=== PATIENT | male | born 1980 | race American Indian/Alaskan Native ===

== ENCOUNTER 2017-12-23 01:03 | Emergency (ER) | payer OTHER ==
[2017-12-23 01:10] VITALS: BP 132/85
[2017-12-23] MEDS ORDERED: BOOSTRIX IM ONE (03:33)
--- NOTE | 2017-12-23 03:37 | Emergency Department Report ---
ED Laceration [facility] - HPI Chief Complaint: Laceration/Recheck/Suture Stated Complaint: LAC TO ARM Time Seen by Provider: 12/23/17 03:33 Occurred When: Yesterday Location: Upper Extremity Tetanus Status: Not up to Date Laceration Symptoms: No Foreign Body Sensation, No Numbness, No Weakness, No Pain Other History: [id number] male comes in complaint of a cut on his right wrist on a glass door this occurred 5 hours prior to arrival. Patient reports no past medical history currently takes no medications on a daily basis and has no known drug allergies. ED Review of Systems ROS: Stated complaint: LAC TO ARM Other details as noted in HPI Skin: other (cut to right wrist) ED Past Medical Hx - Past Medical History Previous Medical History?: No - Surgical History Past Surgical History?: Yes Hx Cholecystectomy: Yes - Social History Smoking Status: Never Smoker Substance Use Type: Alcohol, Marijuana Laceration Physical Exam - Exam General: Vital signs noted. No distress. Alert and acting appropriately. Laceration Location: Upper Extremity (1 cm irregular edge laceration) Laceration Exam: Yes Normal Distal CMS, No Foreign Body, No Exposed Tendon, Vessel, or Nerve, No Tendon Injury ED Course Vital Signs 12/23/17 01:04 Temperature 97.8 F Pulse Rate 71 Respiratory 18 Rate Blood Pressure 132/85 O2 Sat by Pulse 98 Oximetry - Laceration /Wound Repair Right Wrist Wound Location: upper extremity (right wrist) Wound's Depth, Shape: superficial, irregular Wound Repaired With: Dermabond Sterile Dressing Applied?: Yes Progress: Patient tolerated procedure well Critical care attestation.: If time is entered above; I have spent that time in minutes in the direct care of this critically ill patient, excluding procedure time. ED Disposition Clinical Impression: Cut of right wrist Disposition: DC-01 TO HOME OR SELFCARE Is pt being admited?: No Does the pt Need Aspirin: No Condition: Stable Instructions: Skin Adhesive Care (ED) Additional Instructions: Please keep wound clean and dry. Referrals: VIR[facility] PREST[facility] [Other] - 3-5 Days Forms: Work/School Release Form(ED)
== END 2017-12-23 03:55 | disposition home or self-care (01) ==
LOC: ED 01:03
DX: S61.511A Laceration without foreign body of right wrist, initial encounter (principal); F12.10 Cannabis abuse, uncomplicated; Z90.49 Acquired absence of other specified parts of digestive tract; W25.XXXA Contact with sharp glass, initial encounter; Y93.89 Activity, other specified; Y99.8 Other external cause status; Y92.89 Other specified places as the place of occurrence of the external cause
CPT/HCPCS: 90471; 90715